=== PATIENT | female | born 1935 | race Caucasian/White ===

== ENCOUNTER → 2017-01-24 | Outpatient (CLI) | payer OTHER ==
--- NOTE | 2017-01-25 14:07 | CPEEG ---
[f rep st] ELECTROENCEPHALOGRAM DATE OF STUDY: 01/24/2017 DATE OF INTERPRETATION: 01/25/2017. INTERPRETATION: This EEG is abnormal due to the presence of potentially epileptogenic abnormalities over the left temporal head region. 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 REPORT: This EEG contains 9-10 Hz alpha activity to the posterior head regions. The background acti vity was normal and symmetric. The primary feature of this recording was the presence of left tempor al sharp waves. These were maximal at electrode F7 and T3. There was no additional activation with photic stimulation or hyperventilation. The patient became drowsy and fell asleep during the study. During drowsiness and sleep, there was continued activation of left temporal sharp waves. The findings of this study were directly communicated to the ordering provider, Dr. Eze Johansen. /[id number]/MODL
== END ==
LOC: FCPNEURO 08:46
PROVIDERS: ATTEND Psychiatry & Neurology Neurology
DX: R40.4 Transient alteration of awareness (principal); R41.3 Other amnesia; R94.01 Abnormal electroencephalogram [EEG]

== ENCOUNTER 2018-02-06 09:31 | Day surgery (SDC) | payer OTHER ==
[2018-02-06] MEDS ORDERED: LIDOCAINE 1% 300 MG/30 ML SDV SC ONE (09:38)
--- NOTE | 2018-02-06 10:31 | PDHPUP ---
History & Physical Update H&P update statement: This history and physical update is based on an assessment of the patient which was completed after admission or registration (within 24 hours), but prior to the surgery/procedure. H&P update: H&P reviewed & patient examined, no change in patient's condition since H&P completed
--- NOTE | 2018-02-06 11:38 | CPIP ---
DATE OF PROCEDURE: 02/06/2018 PROCEDURE: Implantation of a [employer] Eze Confirm. INDICATIONS: The patient is 83 years old. She has a history of multiple episodes of syncope. She h as been monitored as an outpatient without revealing findings. PROCEDURE: Implantation of a [employer] Confirm. TECHNIQUE: Following informed consent and in the fasting state, the patient was brought to the CVC. The 4th left intercostal space was identified by landmarks. This was then prepped and draped in usu al sterile fashion. Xylocaine was infiltrated in the skin overlying the 4th intercostal space. A 1 cm incision was made with a [address] [employer] Confirm was then injected underneath the skin and the wound closed with 2 mary. COMPLICATIONS: None DEVICE INFORMATION: The device is a [employer] Confirm, reference #[id number], serial #[id number]. /[id number]/MODL
== END 2018-02-06 11:40 | disposition home or self-care (01) ==
LOC: FCATH 09:31
PROVIDERS: ATTEND Internal Medicine Cardiovascular Disease
PROC: 0JH63PZ Insertion of Cardiac Rhythm Related Device into Chest Subcutaneous Tissue and Fascia, Percutaneous Approach (ICD-10-PCS; principal; 2018-02-06)
DX: R55 Syncope and collapse (principal); G40.909 Epilepsy, unspecified, not intractable, without status epilepticus
CPT/HCPCS: C1764